=== PATIENT | male | born 1995 | race Hispanic/Latino ===

== ENCOUNTER 2019-04-20 20:04 | Emergency (ER) | payer SELFPAY ==
[2019-04-20] MEDS ORDERED: MORPHINE 4 MG/ML SYR ONE (20:44)
[2019-04-20] MEDS ORDERED: ONDANSETRON 4 MG/2 ML VIAL ONE (20:45)
--- NOTE | 2019-04-20 21:01 | RAD REPORT ---
EXAM DESCRIPTION: US - Abdomen Exam Limited - 04/20/2019 8:53 pm CLINICAL HISTORY: eval for cholecystitis COMPARISON: No comparisons FINDINGS: The gallbladder demonstrates no gallstones. No pericholecystic fluid or gallbladder wall t hickening. The common bile duct is normal measuring 3 mm. The liver demonstrates no findings of intrahepatic biliary dilatation. IMPRESSION: Unremarkable examination.
[2019-04-20 21:07] LABS: Absolute Lymphocytes (CBC) 2.1 K/uL (0.7-4.9); Basophils % 0.5 % (0-1.3); Hematocrit 48.1 % (39.6-49.0); Lymphocytes % 24.4 % (15.3-44.8); MPV 7.8 fL (7.6-11.3); RBC Red Blood Cell Count 5.07 M/uL (4.33-5.43)
[2019-04-20 21:21] LABS: ALT/SGPT 39 U/L (12-78); AST/SGOT 23 U/L (15-37); Albumin 4.4 g/dL (3.4-5.0); Alkaline Phosphatase 81 U/L (45-117); BUN Blood Urea Nitrogen 17 mg/dL (7-18); Bicarbonate 29 mmol/L (21-32); Bilirubin Direct 0.2 mg/dL (0-0.2); Bilirubin Total 0.6 mg/dL (0.2-1.0); Glucose Level 96 mg/dL (74-106); Lipase 50 U/L (73-393); Potassium 3.6 mmol/L (3.5-5.1); Protein, Total 7.8 g/dL (6.4-8.2); Sodium Level 140 mmol/L (136-145)
--- NOTE | 2019-04-20 22:21 | ER ---
Nurse's Notes [facility] Name: Cj Jean Age: 23 yrs Sex: Male : 1995 Arrival Date: 04/20/2019 Time: 20:09 Bed 19 Private MD: Diagnosis: Upper abdominal pain, unspecified Presentation: 04/20 20:13 Presenting complaint: Patient states: He was diagnosed with gallstones a month ago, he aj1 has not followed up with anyone, now he is having pain. Transition of care: patient was not received from another setting of care. Onset of symptoms was April 20, 2019. Risk Assessment: Do you want to hurt yourself or someone else? Patient reports no desire to harm self or others. Initial Sepsis Screen: Does the patient meet any 2 criteria? HR > 90 bpm. No. Patient's initial sepsis screen is negative. Does the patient have a suspected source of infection? Yes: Acute abdominal pain. Care prior to arrival: None. 20:13 Method Of Arrival: Ambulatory [facility] 20:13 Acuity: ALF 3 aj1 Triage Assessment: 20:14 General: Appears in no apparent distress. uncomfortable, Behavior is calm, cooperative, aj1 appropriate for age. Pain: Pain currently is 10 out of 10 on a pain scale. Neuro: Level of Consciousness is awake, alert, obeys commands. Cardiovascular: Patient's skin is warm and dry. Respiratory: Airway is patent Respiratory effort is even, unlabored, Respiratory pattern is regular, symmetrical. GI: Reports upper abdominal pain. Historical: - Allergies: 20:14 No Known Allergies; aj1 - Home Meds: 20:14 None [Active]; aj1 - PMHx: 20:14 gallstones; aj1 - PSHx: 20:14 None; aj1 - Immunization history:: Flu vaccine is not up to date. - Social history:: Smoking status: Patient uses tobacco products, denies chronic smoking, but will smoke occasionally. - Ebola Screening: : Patient denies travel to an Ebola-affected area in the 21 days before illness onset. - Family history:: not pertinent. - Hospitalizations: : No recent hospitalization is reported. Screenin:17 Abuse screen: Denies threats or abuse. Denies injuries from another. Nutritional cc3 screening: No deficits noted. Tuberculosis screening: No symptoms or risk factors identified. Fall Risk Ambulatory Aid- None/Bed Rest/Nurse Assist (0 pts). Gait- Normal/Bed Rest/Wheelchair (0 pts) Mental Status- Oriented to own ability (0 pts). Assessment: 20:17 General: Appears in no apparent distress. uncomfortable, Behavior is calm, cooperative, cc3 appropriate for age. Pain: Complains of pain in abdomen. Neuro: Level of Consciousness is awake, alert, obeys commands, Oriented to person, place, time, situation, Appropriate for age. Cardiovascular: Denies chest pain, Heart tones S1 S2 present Capillary refill < 3 seconds in bilateral fingers Patient's skin is warm and dry. Respiratory: Airway is patent Respiratory effort is even, unlabored, Respiratory pattern is regular, symmetrical, Breath sounds are clear bilaterally. GI: Abdomen is round non-distended, Bowel sounds present X 4 quads. Abd is soft and non tender X 4 quads. : No signs and/or symptoms were reported regarding the genitourinary system. EENT: No signs and/or symptoms were reported regarding the EENT system. Derm: Skin is intact, is healthy with good turgor, Skin is pink, warm \T\ dry. normal. Musculoskeletal: Circulation, motion, and sensation intact. Range of motion: intact in all extremities. 21:30 Reassessment: Patient appears in no apparent distress at this time. Patient and/or cc3 family updated on plan of care and expected duration. Pain level reassessed. Patient is alert, oriented x 3, equal unlabored respirations, skin warm/dry/pink. Patient came back from CT scan department, awaiting result. Patient denies pain at this time. Patient states feeling better. Patient states symptoms have improved. 22:35 Reassessment: Patient appears in no apparent distress at this time. Patient and/or cc3 family updated on plan of care and expected duration. Pain level reassessed. Patient is alert, oriented x 3, equal unlabored respirations, skin warm/dry/pink. Dr. Lowry discharged the patient home with prescription given. IV cannula removed and patient left ER vitally stable and ambulatory with his friend. No valuables left in the patient's room. Patient denies pain at this time. Patient states feeling better. Patient states symptoms have improved. Vital Signs: 20:14 BP 138 / 83; Pulse 77; Resp 18; Temp 97.4; Pulse Ox 100% on R/A; Weight 81.65 kg (R); aj1 Height 5 ft. 8 in. (172.72 cm) (R); Pain 10/10; 21:00 BP 121 / 93; Pulse 84; Resp 17 S; Pulse Ox 100% on R/A; cc3 22:20 BP 125 / 77; Pulse 85; Resp 16 S; Pulse Ox 100% on R/A; Pain 0/10; cc3 20:14 Body Mass Index 27.37 (81.65 kg, 172.72 cm) aj1 ED Course: 20:09 Patient arrived in ED. es 20:14 Triage completed. aj1 20:14 Arm band placed on Patient placed in an exam room. aj1 20:17 Laverne Bordne is Primary Nurse. cc3 20:17 Tarik Lowry MD is Attending Physician. rn 20:17 Patient has correct armband on for positive identification. Bed in low position. Call cc3 light in reach. Side rails up X2. Pulse ox on. NIBP on. 20:50 Inserted saline lock: 20 gauge in right antecubital area, using aseptic technique. cc3 Blood collected. 20:53 US Abdomen Limited In Process Unspecified. EDMS 20:58 Ultrasound completed. Patient tolerated well. Notified ED Physician . sg3 21:40 CT Abd/Pelvis - IV Contrast Only In Process Unspecified. EDMS 22:26 Jose David Saxena MD is Referral Physician. rn 22:35 No provider procedures requiring assistance completed. IV discontinued, intact, cc3 bleeding controlled, No redness/swelling at site. Pressure dressing applied. Administered Medications: 20:50 Drug: morphine 4 mg {Note: RASS 0.} Route: IVP; Site: right antecubital; cc3 22:35 Follow up: Response: No adverse reaction; Pain is decreased; RASS: Alert and Calm (0) cc3 20:55 Drug: Zofran 4 mg Route: IVP; Site: right antecubital; cc3 22:35 Follow up: Response: No adverse reaction; Nausea is decreased cc3 22:25 Drug: GI Cocktail without - (Maalox Suspension 30 ml, Lidocaine Liquid 2 % 15 cc3 ml) Route: PO; 22:35 Follow up: Response: No adverse reaction cc3 Outcome: 22:20 Discharge ordered by . rn 22:35 Discharged to home ambulatory, with friend. cc3 22:35 Condition: stable 22:35 Discharge instructions given to patient, Instructed on discharge instructions, follow up and referral plans. medication usage, Demonstrated understanding of instructions, follow-up care, medications, Prescriptions given X 1. 22:40 Patient left the ED. cc3 Signatures: Dispatcher [employer] Carla Bear RN RN aj1 Salyer, Tarik Duenas MD MD rn Godinez, Sarah 3 Laverne Borden cc3
--- NOTE | 2019-04-20 22:21 | EDPHYS ---
Physician Documentation [facility] Name: Cj Jean Age: 23 yrs Sex: Male : 1995 Arrival Date: 04/20/2019 Time: 20:09 Bed 19 Private MD: ED Physician Tarik Lowry HPI: 04/20 20:36 This 23 yrs old Male presents to ER via Ambulatory with complaints of rn Abdominal Pain, SEVER PAIN. 20:36 The patient presents with abdominal pain in the right upper quadrant. Onset: The rn symptoms/episode began/occurred 3 day(s) ago. The symptoms do not radiate. Associated signs and symptoms: Pertinent positives: nausea, Pertinent negatives: anorexia, blood in stools, chest pain, constipation, diarrhea, dysuria, fever, shortness of breath, testicular pain. The symptoms are described as intermittent, sharp, stabbing. Modifying factors: The symptoms are alleviated by nothing, the symptoms are aggravated by touching the area. Severity of pain: At its worst the pain was moderate in the emergency department the pain has improved. The patient has experienced a previous episode. The patient has not recently seen a physician. Reports RUQ abd pain, began 3 days ago, assoc with nausea, similar symptoms 1 month ago in [place], told him might need gallbladder removed, given unknown medication and got better. Reports pain worse. Has appetite, no fever, no diarrhea.. Historical: - Allergies: 20:14 No Known Allergies; aj1 - Home Meds: 20:14 None [Active]; aj1 - PMHx: 20:14 gallstones; aj1 - PSHx: 20:14 None; aj1 - Immunization history:: Flu vaccine is not up to date. - Social history:: Smoking status: Patient uses tobacco products, denies chronic smoking, but will smoke occasionally. - Ebola Screening: : Patient denies travel to an Ebola-affected area in the 21 days before illness onset. - Family history:: not pertinent. - Hospitalizations: : No recent hospitalization is reported. ROS: 20:36 Constitutional: Negative for fever, chills, and weight loss, Eyes: Negative for injury, rn pain, redness, and discharge, Neck: Negative for injury, pain, and swelling, Cardiovascular: Negative for chest pain, palpitations, and edema, Respiratory: Negative for shortness of breath, cough, wheezing, and pleuritic chest pain, Abdomen/GI: + ruq abd pain and nausea Back: Negative for injury and pain, : Negative for injury, bleeding, discharge, and swelling, MS/Extremity: Negative for injury and deformity, Skin: Negative for injury, rash, and discoloration, Neuro: Negative for headache, weakness, numbness, tingling, and seizure. Exam: 20:36 Constitutional: This is a well developed, well nourished patient who is awake, alert, rn and in no acute distress. Head/Face: Normocephalic, atraumatic. ENT: MMM Cardiovascular: Regular rate and rhythm. No pulse deficits. Respiratory: No increased work of breathing, no retractions or nasal flaring. Abdomen/GI: + RUQ tenderness, no rebound, neg mackenzie Skin: Warm, dry with normal turgor. Normal color with no rashes, no lesions, and no evidence of cellulitis. MS/ Extremity: Pulses equal, no cyanosis. Neurovascular intact. Full, normal range of motion. Equal circumference. Neuro: Awake and alert, GCS 15 Vital Signs: 20:14 BP 138 / 83; Pulse 77; Resp 18; Temp 97.4; Pulse Ox 100% on R/A; Weight 81.65 kg (R); aj1 Height 5 ft. 8 in. (172.72 cm) (R); Pain 10/10; 21:00 BP 121 / 93; Pulse 84; Resp 17 S; Pulse Ox 100% on R/A; cc3 22:20 BP 125 / 77; Pulse 85; Resp 16 S; Pulse Ox 100% on R/A; Pain 0/10; cc3 20:14 Body Mass Index 27.37 (81.65 kg, 172.72 cm) aj MDM: 20:17 Patient medically screened. rn 22:18 Differential diagnosis: appendicitis, cholecystitis, Cholelithiasis, gastritis, rn gastroesophageal reflux disease, non-specific abd pain, pancreatitis, Peptic Ulcer Disease. Data reviewed: vital signs, nurses notes, lab test result(s), radiologic studies, CT scan. 22:19 Counseling: I had a detailed discussion with the patient and/or guardian regarding: the rn historical points, exam findings, and any diagnostic results supporting the discharge/admit diagnosis, lab results, radiology results, the need for outpatient follow up, to return to the emergency department if symptoms worsen or persist or if there are any questions or concerns that arise at home. Response to treatment: the patient's symptoms have mildly improved after treatment, and as a result, I will discharge patient. Special discussion: Based on the patient's Hx, exam, and Dx evaluation, there is no indication for emergent surgery or inpatient Tx. It is understood by the patient/guardian that if the Sx's persist or worsen they need to return immediately for re-evaluation. I discussed with the patient/guardian in detail that at this point there is no indication for admission to the hospital. It is understood, however, that if the symptoms persist or worsen the patient needs to return immediately for re-evaluation. ED course: No acute findings on CT abdomen or u/s. Normal bloodwork. Most likely either gallbladder dysfunction vs gastritis/GERD.. 04/20 20:26 Order name: Basic Metabolic Panel; Complete Time: 21:24 04/20 20:26 Order name: CBC with Diff; Complete Time: : 04/20 20:26 Order name: Creatinine for Radiology; Complete Time: 21:24 04/20 20:26 Order name: Hepatic Function; Complete Time: :24 04/20 20:26 Order name: Lipase; Complete Time: :24 04/20 20:26 Order name: US Abdomen Limited; Complete Time: 21:24 04/20 20:26 Order name: IV Saline Lock; Complete Time: 21:02 04/20 20:26 Order name: Labs collected and sent; Complete Time: 21: 04/20 20:26 Order name: CT Abd/Pelvis - IV Contrast Only rn Administered Medications: 20:50 Drug: morphine 4 mg {Note: RASS 0.} Route: IVP; Site: right antecubital; cc3 22:35 Follow up: Response: No adverse reaction; Pain is decreased; RASS: Alert and Calm (0) cc3 20:55 Drug: Zofran 4 mg Route: IVP; Site: right antecubital; cc3 22:35 Follow up: Response: No adverse reaction; Nausea is decreased cc3 22:25 Drug: GI Cocktail without - (Maalox Suspension 30 ml, Lidocaine Liquid 2 % 15 cc3 ml) Route: PO; 22:35 Follow up: Response: No adverse reaction cc3 Disposition: 04/20/19 22:20 Discharged to Home. Impression: Upper abdominal pain, unspecified. - Condition is Stable. - Discharge Instructions: Abdominal Pain, Adult, Gastritis, Adult, Pain Without a Known Cause, Gallbladder Nuclear Scan. - Prescriptions for Ultram 50 mg Oral Tablet - take 1 tablet by ORAL route every 6 hours As needed; 15 tablet. - Medication Reconciliation Form, Thank You Letter, Antibiotic Education, Prescription Opioid Use form. - Follow up: Jose David Saxena MD; When: As needed; Reason: Recheck today's complaints, Re-evaluation by your physician. - Problem is new. - Symptoms have improved. Signatures: Dispatcher [employer] EDMS Carla Armendariz RN RN aj1 Tarik Lowry MD MD rn Cordel, Charlene cc3 Corrections: (The following items were deleted from the chart) 22:26 22:20 04/20/2019 22:20 Discharged to Home. Impression: Upper abdominal pain, rn unspecified. Condition is Stable. Forms are Medication Reconciliation Form, Thank You Letter, Antibiotic Education, Prescription Opioid Use. Follow up: Private Physician; When: As needed; Reason: Recheck today's complaints, Re-evaluation by your physician. Problem is new. Symptoms have improved. rn 22:40 22:26 04/20/2019 22:20 Discharged to Home. Impression: Upper abdominal pain, cc3 unspecified. Condition is Stable. Discharge Instructions: Abdominal Pain, Adult, Gastritis, Adult, Pain Without a Known Cause, Gallbladder Nuclear Scan. Prescriptions for Ultram 50 mg Oral Tablet - take 1 tablet by ORAL route every 6 hours As needed; 15 tablet. and Forms are Medication Reconciliation Form, Thank You Letter, Antibiotic Education, Prescription Opioid Use. Follow up: Jose David Saxena; When: As needed; Reason: Recheck today's complaints, Re-evaluation by your physician. Problem is new. Symptoms have improved. rn
[2019-04-20] MEDS ORDERED: MAGNE/ALUM HYDROXD 30 ML UCUP ONE (22:24)
[2019-04-20] MEDS ORDERED: LIDOCAINE VISCOUS 2% SOLN 15 ML UDC ONE (22:25)
[2019-04-20 22:52] VITALS: TEMP 97.4; O2SAT 100
[2019-04-20 22:53] VITALS: BP 121/93
--- NOTE | 2019-04-22 12:48 | RAD REPORT ---
EXAM DESCRIPTION: CT - Abdomen Pelvis W Contrast - 04/20/2019 10:20 pm CLINICAL HISTORY: Right sided abd pain COMPARISON: None Available. TECHNIQUE: CT of the abdomen and pelvis performed following IV administration of iodinated contrast. FINDINGS: Lung Bases: The visualized lung bases are clear. Bones: No destructive bone lesions identified. Abdomen: Liver: The liver has normal size and density. No intrahepatic mass or biliary dilatation. Gallbladder: No calcified gallstones. Spleen, Pancreas, and Adrenal Glands: The spleen, pancreas, and adrenal glands are unremarkable. Kidneys: The kidneys have normal size without evidence of solid mass or hydronephrosis. Vasculature: The aorta and IVC have normal caliber and position. The portal vein is patent. The pro ximal visceral and renal arteries are patent. Stomach: The stomach and duodenum have normal course. Other: No free intraperitoneal air. No free fluid or lymphadenopathy. Pelvis: Bladder: Urinary bladder is unremarkable. Bowel: No dilated loops of large or small bowel. Appendix: Normal appendix. Pelvis: Prostate is not enlarged. IMPRESSION: 1. No acute inflammatory or obstructive process identified. This exam was performed according to our departmental dose-optimization program, which includes autom ated exposure control, adjustment of the mA and/or kV according to patient size and/or use of iterati ve reconstruction technique. Electronically signed by: Darren Dutton 04/20/2019 10:05 PM [employer] Due to temporary technical issues with the PACS/Fluency reporting system, reports are being signed by the in house radiologist as a courtesy to ensure prompt reporting. The interpreting radiologist is f ully responsible for the content of the report.
== END 2019-04-20 22:40 | disposition home or self-care (01) ==
LOC: ER 20:04
DX: R10.11 Right upper quadrant pain (principal); Z72.0 Tobacco use
CPT/HCPCS: 36415; 74177; 76705; 80048; 80076; 83690; 85025; 96374; 96375; 99284; J2405; Q9967

== ENCOUNTER 2019-04-25 11:44 | Emergency (ER) | payer SELFPAY ==
[2019-04-25] MEDS ORDERED: MORPHINE 4 MG/ML SYR ONE (11:56)
[2019-04-25] MEDS ORDERED: NA CHLORIDE 0.9% 1,000 ML ONE (11:57)
[2019-04-25] MEDS ORDERED: ONDANSETRON 4 MG/2 ML VIAL ONE (11:57)
[2019-04-25 12:37] LABS: Absolute Lymphocytes (CBC) 2.2 K/uL (0.7-4.9); Basophils % 0.6 % (0-1.3); Hematocrit 45.6 % (39.6-49.0); Lymphocytes % 30.4 % (15.3-44.8); MPV 7.9 fL (7.6-11.3); RBC Red Blood Cell Count 4.92 M/uL (4.33-5.43)
[2019-04-25 12:50] LABS: ALT/SGPT 35 U/L (12-78); AST/SGOT 20 U/L (15-37); Albumin 4.1 g/dL (3.4-5.0); Alkaline Phosphatase 86 U/L (45-117); BUN Blood Urea Nitrogen 17 mg/dL (7-18); Bicarbonate 28 mmol/L (21-32); Bilirubin Direct 0.1 mg/dL (0-0.2); Bilirubin Total 0.4 mg/dL (0.2-1.0); Glucose Level 86 mg/dL (74-106); Lipase 54 U/L (73-393); Protein, Total 7.7 g/dL (6.4-8.2); Sodium Level 140 mmol/L (136-145)
--- NOTE | 2019-04-25 12:55 | RAD REPORT ---
EXAM DESCRIPTION: US - Abdomen Exam Limited - 04/25/2019 12:36 pm CLINICAL HISTORY: Abdominal pain. COMPARISON: None. FINDINGS: The gallbladder wall is not thickened. A gallstone is not seen. The biliary tree is normal caliber. IMPRESSION: Unremarkable gallbladder ultrasound.
--- NOTE | 2019-04-25 13:03 | ER ---
Nurse's Notes [facility] Name: Cj Jean Age: 23 yrs Sex: Male : 1995 Arrival Date: 04/25/2019 Time: 11:46 Bed 18 Private MD: Diagnosis: Upper abdominal pain, unspecified Presentation: 04/25 11:46 Presenting complaint: Patient states: epigastric pain radiating to RUQ and right aa5 lateral aspect of abdomen that got worse today, pt reports being seen here on Monday for same pain. Pt reports nausea, denies vomiting. 11:46 Transition of care: patient was not received from another setting of care. Onset of aa5 symptoms was April 2019. Risk Assessment: Do you want to hurt yourself or someone else? Patient reports no desire to harm self or others. Initial Sepsis Screen: Does the patient meet any 2 criteria? No. Patient's initial sepsis screen is negative. Does the patient have a suspected source of infection? No. Patient's initial sepsis screen is negative. Care prior to arrival: Medication(s) given: Fentanyl 50mcg IVP IV initiated. 20 GA, in the left forearm. 11:46 Acuity: ALF 3 aa5 11:46 Method Of Arrival: [facility]: [facility] aa5 Historical: - Allergies: 11:46 No Known Allergies; aa5 - PMHx: 11:46 None; aa5 - PSHx: 11:46 None; aa5 - Immunization history:: Adult Immunizations unknown. - Social history:: Smoking status: Patient uses tobacco products, smokes one-half pack cigarettes per day. - Ebola Screening: : No symptoms or risks identified at this time. Screenin:46 Abuse screen: Denies threats or abuse. Nutritional screening: No deficits noted. aa5 Tuberculosis screening: No symptoms or risk factors identified. Fall Risk None identified. Assessment: 11:46 General: Appears uncomfortable, Behavior is calm, cooperative. Pain: Complains of pain aa5 in epigastric area Pain radiates to anterior aspect of right lateral abdomen and right upper quadrant Pain currently is 10 out of 10 on a pain scale. Quality of pain is described as sharp, Is continuous. Neuro: Level of Consciousness is awake, alert, obeys commands, Oriented to person, place, time, situation. Cardiovascular: Patient's skin is warm and dry. Respiratory: Airway is patent Respiratory effort is even, unlabored, Respiratory pattern is regular, symmetrical. GI: Abdomen is flat, non-distended, Bowel sounds present X 4 quads. Abd is soft and non tender X 4 quads. Reports nausea, Patient currently denies vomiting. : No signs and/or symptoms were reported regarding the genitourinary system. EENT: No signs and/or symptoms were reported regarding the EENT system. Derm: Skin is pink, warm \\T\\ dry. Musculoskeletal: Range of motion: intact in all extremities. 12:10 Reassessment: Patient is alert, oriented x 3, equal unlabored respirations, skin aa5 warm/dry/pink. Patient states feeling better. Small hives and redness noted to IV site, pt denies itching. PA was notified. . 12:30 Reassessment: Patient is alert, oriented x 3, equal unlabored respirations, skin aa5 warm/dry/pink. No hives or redness noted to IV site at this time. Pt denies any complaints. . 13:00 Reassessment: Patient is alert, oriented x 3, equal unlabored respirations, skin aa5 warm/dry/pink. Patient states feeling better. Pain: Pain currently is 3 out of 10 on a pain scale. 13:20 Reassessment: PA at bedside discussing results with patient. . aa5 13:25 Reassessment: Patient is alert, oriented x 3, equal unlabored respirations, skin aa5 warm/dry/pink. Pt states he will call some friends for a ride home. . 14:30 Reassessment: Pt resting in bed with eyes closed, pt easy to arouse to verbal stimuli. aa5 pt states "nobody can come pick me up, can you please call me a taxi?". Taxi service contacted by ER pathology secretary/transcriptionist and ETA is 20 minutes. . Vital Signs: 11:46 BP 130 / 87; Pulse 60; Resp 16 S; Temp 98.4(O); Pulse Ox 98% on R/A; Pain 10/10; aa5 12:10 BP 123 / 68; Pulse 63; Resp 16 S; Pulse Ox 99% on R/A; Pain 4/10; aa5 13:10 BP 132 / 82; Pulse 70; Resp 16 S; Pulse Ox 98% on R/A; Pain 3/10; aa5 14:10 BP 130 / 80; Pulse 72; Resp 16 S; Temp 98.0(TE); Pulse Ox 99% on R/A; Pain 2/10; aa5 ED Course: 11:46 Patient arrived in ED. vc 11:46 Arm band placed on Patient placed in an exam room, on a stretcher. aa5 11:46 Patient has correct armband on for positive identification. Placed in gown. Bed in low aa5 position. Call light in reach. Side rails up X2. Pulse ox on. NIBP on. 11:48 Tarik Lowry MD is Attending Physician. rn 11:49 Eric Ortega, DESIREE is PHCP. pm1 12:24 Alyssa Levine, JUNE is Primary Nurse. aa5 12:37 US Abdomen Limited In Process Unspecified. EDMS 13:03 Triage completed. aa5 14:50 No provider procedures requiring assistance completed. IV discontinued, intact, aa5 bleeding controlled, No redness/swelling at site. Pressure dressing applied. Administered Medications: 11:55 Drug: NS 0.9% 1000 ml Route: IV; Rate: 1000 ml; Site: left forearm; aa5 13:00 Follow up: IV Status: Completed infusion; IV Intake: 1000ml aa5 13:00 Follow up: IV Status: Completed infusion; IV Intake: 1000ml aa5 13:00 Follow up: IV Status: Completed infusion; IV Intake: 1000ml aa5 13:00 Follow up: IV Status: Completed infusion; IV Intake: 1000ml aa5 16:58 Follow up: IV Status: Completed infusion; IV Intake: 1000ml ; Infusion completed at aa5 1300. (edit 1900) 11:55 Drug: Zofran 4 mg Route: IVP; Site: left forearm; aa5 12:10 Follow up: Hives and redness noted to IV site, pt denie itching. aa5 17:29 Follow up: Hives and redness noted to IV site, pt denie itching. Edit time 1210 aa5 11:57 Drug: morphine 4 mg Route: IVP; Site: left forearm; aa5 12:10 Follow up: Redness and small hives noted to IV site, pt denies itching, PA notified and aa5 will continue to monitor. 17:28 Follow up: Redness and small hives noted to IV site, pt denies itching, PA notified and aa5 will continue to monitor at 1410 17:29 Follow up: Redness and small hives noted to IV site, pt denies itching, PA notified and aa5 will continue to monitor at 1210 13:10 Drug: Pepcid 20 mg Route: IVP; Site: left forearm; aa5 17:27 Follow up: Response: No adverse reaction; Edit time 1320 aa5 13:11 Drug: GI Cocktail without - (Maalox Suspension 30 ml, Lidocaine Liquid 2 % 15 aa5 ml) Route: PO; 17:28 Follow up: Response: No adverse reaction; Edit time 1430 aa5 Intake: 13:00 IV: 1000ml; Total: 1000ml. aa5 13:00 IV: 1000ml; Total: 2000ml. aa5 13:00 IV: 1000ml; Total: 3000ml. aa5 16:58 IV: 1000ml; Total: 4000ml. aa5 Outcome: 13:02 Discharge ordered by . pm1 14:50 Discharged to home ambulatory, Via Taxi aa5 14:50 Condition: improved 14:50 Discharge instructions given to patient, Instructed on discharge instructions, follow up and referral plans. medication usage, Demonstrated understanding of instructions, follow-up care, medications, Prescriptions given X 1. 14:56 Patient left the ED. aa5 Signatures: Dispatcher [employer] EDMS Tarik Lowry MD MD rn Calderon, Audri, RN RN aa5 Eric Ortega, DESIREE [employer] ARCHITECT pm1 Maribel Tang RN RN vc Corrections: (The following items were deleted from the chart) 13:17 13:10 Pulse 70bpm; Resp 16bpm; Spontaneous; Pulse Ox 98% RA; Pain 3/10; aa5 aa5 16:58 13:00 IV Status: Completed infusion; IV Intake: 1000ml aa5 aa5 17:28 12:10 Redness and small hives noted to IV site, pt denies itching, PA notified and will aa5 continue to monitor. aa5 17:28 13:20 Response: No adverse reaction aa5 aa5 17:29 12:10 Hives and redness noted to IV site, pt denie itching. aa5 aa5 17:29 17:28 Redness and small hives noted to IV site, pt denies itching, PA notified and will aa5 continue to monitor at 1410 aa5 17:30 12:10 Reassessment: Patient is alert, oriented x 3, equal unlabored respirations, skin aa5 warm/dry/pink. Patient states feeling better. aa5
--- NOTE | 2019-04-25 13:04 | EDPHYS ---
Physician Documentation [facility] Name: Cj Jean Age: 23 yrs Sex: Male : 1995 Arrival Date: 04/25/2019 Time: 11:46 Bed 18 Private MD: ED Physician Tarik Lowry HPI: 04/25 12:49 This 23 yrs old Male presents to ER via Unassigned with complaints of pm1 Abdominal pain. 12:49 The patient presents with abdominal pain in the right upper quadrant. pm1 12:49 Onset: The symptoms/episode began/occurred 5 day(s) ago. The symptoms radiate to right pm1 back. Associated signs and symptoms: Pertinent negatives: nausea, vomiting, and diarrhea, chest pain, dysuria, fever, shortness of breath, testicular pain. The symptoms are described as sharp. Modifying factors: The symptoms are alleviated by nothing, the symptoms are aggravated by nothing. Severity of pain: in the emergency department the pain is actually worse. The patient has experienced a previous episode, similar episode in [place] about 1 month ago. Took unknown medications that resolved pain. 12:49 The patient has been recently seen at the [facility] Emergency pm1 Department, this week, for similar complaints labs were performed, an ultrasound was performed, CT scan was performed, was given a prescription for pain medications, Instructed to follow up with GI. Historical: - Allergies: 11:46 No Known Allergies; aa5 - PMHx: 11:46 None; aa5 - PSHx: 11:46 None; aa5 - Immunization history:: Adult Immunizations unknown. - Social history:: Smoking status: Patient uses tobacco products, smokes one-half pack cigarettes per day. - Ebola Screening: : No symptoms or risks identified at this time. ROS: 12:49 Constitutional: Negative for fever, chills, and weight loss, Eyes: Negative for injury, pm1 pain, redness, and discharge, ENT: Negative for injury, pain, and discharge, Neck: Negative for injury, pain, and swelling, Cardiovascular: Negative for chest pain, palpitations, and edema, Respiratory: Negative for shortness of breath, cough, wheezing, and pleuritic chest pain. 12:49 : Negative for injury, bleeding, discharge, and swelling, MS/Extremity: Negative for injury and deformity, Skin: Negative for injury, rash, and discoloration, Neuro: Negative for headache, weakness, numbness, tingling, and seizure. 12:49 Abdomen/GI: Positive for abdominal pain, Negative for nausea, vomiting, and diarrhea, diarrhea, constipation. 12:49 Back: Positive for flank pain, on the right, Negative for injury or acute deformity, pain with movement. Exam: 12:49 Constitutional: This is a well developed, well nourished patient who is awake, alert, pm1 and in no acute distress. Head/Face: Normocephalic, atraumatic. Chest/axilla: Normal chest wall appearance and motion. Nontender with no deformity. No lesions are appreciated. Cardiovascular: Regular rate and rhythm with a normal S1 and S2. No gallops, murmurs, or rubs. Normal PMI, no JVD. No pulse deficits. Respiratory: Lungs have equal breath sounds bilaterally, clear to auscultation and percussion. No rales, rhonchi or wheezes noted. No increased work of breathing, no retractions or nasal flaring. 12:49 Back: No spinal tenderness. No costovertebral tenderness. Full range of motion. Skin: Warm, dry with normal turgor. Normal color with no rashes, no lesions, and no evidence of cellulitis. MS/ Extremity: Pulses equal, no cyanosis. Neurovascular intact. Full, normal range of motion. 12:49 Abdomen/GI: Inspection: abdomen appears normal, Bowel sounds: normal, Palpation: soft, mild abdominal tenderness, in the right upper quadrant, mass, is not appreciated, rebound tenderness, is not appreciated. 12:49 Neuro: Orientation: is normal, Motor: is normal, moves all fours. Vital Signs: 11:46 BP 130 / 87; Pulse 60; Resp 16 S; Temp 98.4(O); Pulse Ox 98% on R/A; Pain 10/10; aa5 12:10 BP 123 / 68; Pulse 63; Resp 16 S; Pulse Ox 99% on R/A; Pain 4/10; aa5 13:10 BP 132 / 82; Pulse 70; Resp 16 S; Pulse Ox 98% on R/A; Pain 3/10; aa5 14:10 BP 130 / 80; Pulse 72; Resp 16 S; Temp 98.0(TE); Pulse Ox 99% on R/A; Pain 2/10; aa5 MDM: 11:48 Patient medically screened. rn 13:38 Data reviewed: vital signs. Data interpreted: Pulse oximetry: on room air is 99 %. pm1 Interpretation: normal. Counseling: I had a detailed discussion with the patient and/or guardian regarding: the historical points, exam findings, and any diagnostic results supporting the discharge/admit diagnosis, lab results, radiology results, the need for outpatient follow up, a time broker, to return to the emergency department if symptoms worsen or persist or if there are any questions or concerns that arise at home. 04/25 11:52 Order name: Basic Metabolic Panel; Complete Time: 12:53 pm1 04/25 11:52 Order name: CBC with Diff; Complete Time: 12:48 pm1 04/25 11:52 Order name: Creatinine for Radiology; Complete Time: 12:50 pm1 04/25 11:52 Order name: Hepatic Function; Complete Time: 12:53 pm1 04/25 11:52 Order name: Lipase; Complete Time: 12:53 pm1 04/25 11:52 Order name: ETOH Level; Complete Time: 13:01 pm1 04/25 11:52 Order name: IV Saline Lock; Complete Time: 12:24 pm1 04/25 11:52 Order name: Labs collected and sent; Complete Time: 12:24 pm1 04/25 11:52 Order name: US Abdomen Limited; Complete Time: 12:57 pm1 Administered Medications: 11:55 Drug: NS 0.9% 1000 ml Route: IV; Rate: 1000 ml; Site: left forearm; aa5 13:00 Follow up: IV Status: Completed infusion; IV Intake: 1000ml aa5 13:00 Follow up: IV Status: Completed infusion; IV Intake: 1000ml aa5 13:00 Follow up: IV Status: Completed infusion; IV Intake: 1000ml aa5 13:00 Follow up: IV Status: Completed infusion; IV Intake: 1000ml aa5 16:58 Follow up: IV Status: Completed infusion; IV Intake: 1000ml ; Infusion completed at aa5 1300. (edit 1620) 11:55 Drug: Zofran 4 mg Route: IVP; Site: left forearm; aa5 12:10 Follow up: Hives and redness noted to IV site, pt denie itching. aa5 17:29 Follow up: Hives and redness noted to IV site, pt denie itching. Edit time 1210 aa5 11:57 Drug: morphine 4 mg Route: IVP; Site: left forearm; aa5 12:10 Follow up: Redness and small hives noted to IV site, pt denies itching, PA notified and aa5 will continue to monitor. 17:28 Follow up: Redness and small hives noted to IV site, pt denies itching, PA notified and aa5 will continue to monitor at 1410 17:29 Follow up: Redness and small hives noted to IV site, pt denies itching, PA notified and aa5 will continue to monitor at 1210 13:10 Drug: Pepcid 20 mg Route: IVP; Site: left forearm; aa5 17:27 Follow up: Response: No adverse reaction; Edit time 1320 aa5 13:11 Drug: GI Cocktail without - (Maalox Suspension 30 ml, Lidocaine Liquid 2 % 15 aa5 ml) Route: PO; 17:28 Follow up: Response: No adverse reaction; Edit time 1430 aa5 Disposition: 16:07 Co-signature as Attending Physician, Tarik Lowry MD. rn Disposition: 04/25/19 13:02 Discharged to Home. Impression: Upper abdominal pain, unspecified. - Condition is Stable. - Discharge Instructions: Abdominal Pain, Adult. - Prescriptions for Pepcid 20 mg Oral Tablet - take 1 tablet by ORAL route every 12 hours for 10 days; 20 tablet. - Work release form, Medication Reconciliation Form, Thank You Letter, Antibiotic Education, Prescription Opioid Use form. - Follow up: Emergency Department; When: As needed; Reason: Worsening of condition. Follow up: Private Physician; When: 2 - 3 days; Reason: Recheck today's complaints, Continuance of care, Re-evaluation by your physician. - Problem is new. - Symptoms have improved. Signatures: Dispatcher [employer] EDMS Tarik Lowry MD MD rn Calderon, Audri RN RN aa5 Eric Ortega NP [employer]KER pm1 Corrections: (The following items were deleted from the chart) 14:56 13:02 04/25/2019 13:02 Discharged to Home. Impression: Upper abdominal pain, aa5 unspecified. Condition is Stable. Forms are Medication Reconciliation Form, Thank You Letter, Antibiotic Education, Prescription Opioid Use. Follow up: Emergency Department; When: As needed; Reason: Worsening of condition. Follow up: Private Physician; When: 2 - 3 days; Reason: Recheck today's complaints, Continuance of care, Re-evaluation by your physician. Problem is new. Symptoms have improved. pm1
[2019-04-25] MEDS ORDERED: MAGNE/ALUM HYDROXD 30 ML UCUP ONE (13:19)
[2019-04-25] MEDS ORDERED: FAMOTIDINE 20 MG/2 ML VIAL IV ONE (13:19)
[2019-04-25] MEDS ORDERED: LIDOCAINE VISCOUS 2% SOLN 15 ML UDC ONE (13:19)
[2019-04-25 16:06] VITALS: BP 127/87; TEMP 98.1; O2SAT 100
== END 2019-04-25 14:56 | disposition home or self-care (01) ==
LOC: ER 11:44
DX: R10.11 Right upper quadrant pain (principal)
CPT/HCPCS: 36415; 76705; 80048; 80076; 80320; 83690; 85025; 96361; 96374; 96375; 99284; J2405; J7030